=== PATIENT | male | born 1970 | race Caucasian/White ===

== ENCOUNTER 2020-03-29 07:46 | Emergency (ER) | payer BC, OTHER ==
[~2020-03-29] VITALS: Ht 180.3 cm; Wt 117.0 kg
--- NOTE | 2020-03-29 09:05 | NUR ---
CASH MANAGEMENT ASSOCIATE: PT WALKED BACK FROM LOBBY TO ROOM AT THIS TIME. STEADY UPON AMBULATION. NO ACUTE DISTRESS NOTED AT THIS TIME.
--- NOTE | 2020-03-29 09:25 | NUR ---
PT STATES COUGH STARTING LAST THURSDAY AFTER TRAVELING TO [place] FROM [place]. PT WITH NO REPIR DISTRESS, PROTECTING OWN AIRWAY, DENIES CP OR SOB. STUDENT AT BEDSIDE FOR ASSESSMENT, WILL FOLLOW ORDERS.
[2020-03-29 10:18] VITALS: BP 147/74
== END 2020-03-29 10:20 | disposition home or self-care (01) ==
LOC: ED 09:36
DX: U07.1 COVID-19 (principal); B34.9 Viral infection, unspecified; R50.9 Fever, unspecified; R05 Cough; R06.02 Shortness of breath; M79.10 Myalgia, unspecified site; R63.0 Anorexia
CPT/HCPCS: 36415; 71045; 87635; 93005; 99285